=== PATIENT | male | born 1980 | race Two or more races ===

== ENCOUNTER 2020-09-30 00:15 | Emergency (ER) | payer MEDICAID, OTHER ==
[~2020-09-30] VITALS: Ht 180.3 cm; Wt 88.0 kg
[2020-09-30] MEDS ORDERED: hydrALAZINE HCL IV 20 MG VIAL IV ONE (00:30)
--- NOTE | 2020-09-30 00:30 | NUR ---
PATIENT BIBRA 79 FROM HOME. PATIENT STATES HE WOKE UP WITH RIGHT ARM SHAKING, CHILLS SWEATING AND BLURRED VISION X 30 MINS HAND DRY CLEANER. FIELD BS 117. PATIENT IS A/O X 4, [place] SPEAKING. DENIES N/V, STATES HE FEELS DIZZY. 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
[2020-09-30] MEDS ORDERED: hydrALAZINE HCL IV 20 MG VIAL ONE (00:36)
[2020-09-30 00:47] LABS: BASOPHILS % (AUTO) 0.4 % (0.0-2.0); EOSINOPHILS % (AUTO) 0.9 % (0.0-6.0); HEMATOCRIT 43 % (39-51); HEMOGLOBIN 14.6 g/dL (13.5-17.5); LYMPHOCYTES # (AUTO) 4.6 /CMM (0.8-4.8); MEAN CORPUSCULAR HGB CONC 34 g/dl (31.0-36.0); MEAN CORPUSCULAR VOLUME 85 fL (80-96); MONOCYTES # (AUTO) 0.6 /CMM (0.1-1.30); MONOCYTES % (AUTO) 6.3 % (2.0-12.0); NEUTROPHILS # (AUTO) 3.7 /CMM (1.8-8.9); NEUTROPHILS % (AUTO) 41.4 % (43.0-81.0); PLATELET COUNT (AUTO) 301 /CMM (150-450); RED BLOOD CELL COUNT(AUTO) 5.07 MIL/uL (4.5-6.0)
--- NOTE | 2020-09-30 00:50 | NUR ---
PATIENT TAKEN TO CT
--- NOTE | 2020-09-30 01:01 | NUR ---
PATIENT RETURNED FROM CT
[2020-09-30 01:10] LABS: ALANINE AMINOTRANSFERASE 65 U/L (12-78); ALBUMIN 4.3 g/dL (3.4-5.0); ALKALINE PHOSPHATASE 65 U/L (46-116); ASPARTATE AMINOTRANSFERASE 34 U/L (15-37); BILIRUBIN,DIRECT 0.1 mg/dL (0.0-0.2); BILIRUBIN,TOTAL 0.5 mg/dL (0.2-1.0); CALCIUM, SERUM 8.8 mg/dL (8.5-10.1); CARBON DIOXIDE 25 mmol/L (21-32); CHLORIDE 102 mmol/L (98-107); GLUCOSE 113 mg/dL (74-106); POTASSIUM 3.6 mmol/L (3.5-5.1); SODIUM SERUM 138 mmol/L (136-145); TOTAL PROTEIN, SERUM 7.5 g/dL (6.4-8.2); UREA NITROGEN, BLOOD 14 mg/dL (7-18)
[2020-09-30 02:08] VITALS: BP 155/83
--- NOTE | 2020-09-30 02:09 | NUR ---
Patient discharged to home in stable condition. Written and verbal after care instructions given. Patient verbalizes understanding of instruction. ambulatory with a steady gait
== END 2020-09-30 02:10 | disposition home or self-care (01) ==
LOC: ER 00:17
DX: I10 Essential (primary) hypertension (principal); F41.1 Generalized anxiety disorder; R41.82 Altered mental status, unspecified
CPT/HCPCS: 36415; 70450; 71045; 80048; 80076; 82962; 84484; 85025; 96374; 99285; J0360